=== PATIENT | female | born 1950 | race Caucasian/White ===

== ENCOUNTER 2018-06-09 00:38 | Outpatient (CLI) | payer OTHER, SELFPAY ==
--- NOTE | 2018-06-09 12:08 | DI.RAD_ITS ---
SYMPTOMS/DIAGNOSIS: ANTERIOR KNEE PAIN, ? FX, ONE AREA OF HORRIBLE PAIN S/P FALL 3 MONTHS AGO RIGHT KNEE: Three views. No priors. No bone or joint abnormality is identified. The soft tissues are unremarkable. IMPRESSION: Negative examination.
== END 2018-06-09 00:58 ==
PROVIDERS: PCP Family Medicine; Visit Provider Family Medicine
DX: M25.561 Pain in right knee (principal); Z91.81 History of falling
CPT/HCPCS: 73562

== ENCOUNTER 2018-06-16 01:24 | Outpatient (CLI) | payer OTHER, SELFPAY ==
--- NOTE | 2018-06-27 08:27 | PDOC.EEG ---
EEG: [facility] Department of Neurology LONG-TERM AMBULATORY EEG REPORT Date of Recordin06/16/18 at 11:04:05 to 06/19/18 at 11:54:40 Interpreting Physician: Dr. Mell Talavera PCP/Referring Provider: Dr. Gladys Thomas Reason for study: Ms. Isaacs is a 68 year-old woman with a history of atonic spells concerning for seizure. Current Medications: acetaminophen-codeine [Tylenol W/Codeine #3 Tablet] 1 tab PO Q6H PRN PRN #10 tab 11/11/14 azithromycin [Zithromax] 250 mg PO DAILY #4 tablet 11/11/14 ferrous sulfate 1 tab PO 11/11/14 lansoprazole 30 mg PO BID 11/11/14 sertraline [Zoloft] 50 mg PO QAM 11/11/14 simvastatin 20 mg 11/11/14 METHODS: An 18-channel digitized electroencephalogram was recorded in the ambulatory setting with video. The 10/20 international system of electrode placement was used and bipolar and referential electrode montages were recorded. In addition to EEG the patient was monitored for EKG and by video. Activation procedures of photic stimulation and hyperventilation were performed if applicable. The duration of the recording was ~72 hours. DESCRIPTION OF EEG: Waking background activity: During maximal wakefulness a 10-Hz posterior background rhythm was present which was well-modulated, symmetrical, reactive to eye opening, and of moderate voltage. Faster frequencies were present in the bilateral anterior head regions. There was a normal anterior-posterior voltage gradient. Drowsy and sleeping background activity: During drowsiness, there was attenuation of the posterior dominant background rhythm and vertex waves. Normal stage II and III sleep was present with symmetrical sleep spindles, K-complexes, and vertex waves with slowing of the background rhythm to delta/theta frequencies. REM sleep manifested by rapid lateral eye movements and faster background rhythms was recorded. Arousal was unremarkable. She had frequent nocturnal awakenings. Interictal abnormalities: none. There were rare, moderate-amplitude, left temporal sharps (T5) that were not clearly epileptiform. Ictal findings: No events were recorded. Activating Procedures: Photic stimulation was performed which produced a symmetrical posterior driving response at various flash frequencies. Hyperventilation was performed with moderate effort and produced mild physiological slowing of the background. EKG: EKG revealed normal sinus rhythm. INTERPRETATION: This long-term EEG is normal during the awake and sleep states as well as during the activation procedures. No events were captured. She had frequent nocturnal awakenings. There were rare, left temporal sharps that were not clearly epileptiform. PRIOR EEG: December 2017: normal awake, asleep, photic stimulation, and hyperventilation CLINICAL CORRELATION: No definite focal regions of cerebral dysfunction or epileptiform activity was present. There were rare left temporal sharps, but these were not clearly epileptiform. Epilepsy remains a clinical diagnosis and a normal EEG does not rule out epilepsy. Finally, the patient has frequent nocturnal awakenings which could suggest an underlying sleep disorder. Clinical correlation is advised. Mell Talavera MD
--- NOTE | 2018-06-27 08:33 | PDOC.EEG_ITS ---
EEG: [facility] Department of Neurology LONG-TERM AMBULATORY EEG REPORT Date of Recordin06/16/18 at 11:04:05 to 06/19/18 at 11:54:40 Interpreting Physician: Dr. Mell Talavera PCP/Referring Provider: Dr. Gladys Thomas Reason for study: Ms. Isaacs is a 68 year-old woman with a history of atonic spells concerning for seizure. Current Medications: acetaminophen-codeine [Tylenol W/Codeine #3 Tablet] 1 tab PO Q6H PRN PRN #10 tab 11/11/14 azithromycin [Zithromax] 250 mg PO DAILY #4 tablet 11/11/14 ferrous sulfate 1 tab PO 11/11/14 lansoprazole 30 mg PO BID 11/11/14 sertraline [Zoloft] 50 mg PO QAM 11/11/14 simvastatin 20 mg 11/11/14 METHODS: An 18-channel digitized electroencephalogram was recorded in the ambulatory setting with video. The 10/20 international system of electrode placement was used and bipolar and referential electrode montages were recorded. In addition to EEG the patient was monitored for EKG and by video. Activation procedures of photic stimulation and hyperventilation were performed if applicable. The duration of the recording was ~72 hours. DESCRIPTION OF EEG: Waking background activity: During maximal wakefulness a 10-Hz posterior background rhythm was present which was well-modulated, symmetrical, reactive to eye opening, and of moderate voltage. Faster frequencies were present in the bilateral anterior head regions. There was a normal anterior-posterior voltage gradient. Drowsy and sleeping background activity: During drowsiness, there was attenuation of the posterior dominant background rhythm and vertex waves. Normal stage II and III sleep was present with symmetrical sleep spindles, K- complexes, and vertex waves with slowing of the background rhythm to delta/ theta frequencies. REM sleep manifested by rapid lateral eye movements and faster background rhythms was recorded. Arousal was unremarkable. She had frequent nocturnal awakenings. Interictal abnormalities: none. There were rare, moderate-amplitude, left temporal sharps (T5) that were not clearly epileptiform. Ictal findings: No events were recorded. Activating Procedures: Photic stimulation was performed which produced a symmetrical posterior driving response at various flash frequencies. Hyperventilation was performed with moderate effort and produced mild physiological slowing of the background. EKG: EKG revealed normal sinus rhythm. INTERPRETATION: This long-term EEG is normal during the awake and sleep states as well as during the activation procedures. No events were captured. She had frequent nocturnal awakenings. There were rare, left temporal sharps that were not clearly epileptiform. PRIOR EEG: December 2017: normal awake, asleep, photic stimulation, and hyperventilation CLINICAL CORRELATION: No definite focal regions of cerebral dysfunction or epileptiform activity was present. There were rare left temporal sharps, but these were not clearly epileptiform. Epilepsy remains a clinical diagnosis and a normal EEG does not rule out epilepsy. Finally, the patient has frequent nocturnal awakenings which could suggest an underlying sleep disorder. Clinical correlation is advised. Mell Talavera MD
== END 2018-06-16 01:44 ==
PROVIDERS: PCP Family Medicine; Visit Provider Psychiatry & Neurology Neurology
DX: G40.409 Other generalized epilepsy and epileptic syndromes, not intractable, without status epilepticus (principal)
CPT/HCPCS: 95953

== ENCOUNTER 2018-07-03 13:36 | Outpatient (REF) | payer OTHER, SELFPAY ==
--- NOTE | 2018-07-03 11:38 | SKI_PTH ---
PATIENT: Janet Isaacs LOC: [facility] U#:[id number] AGE/SX: 68/F ROOM: RE07/03/[address]: Ivan Pelletier DO : 1950 BED: DIS: 07/03/2018 SPEC #: [id number] RECD: 07/03/18 18:16 STATUS: ROSARIO RELuis #: [id number] JOSÉ MIGUEL: 07/03/18 11:[address]: Ivan Pelletier DEPT: Surgical Specimen RECD BY: Randi Rhodes ENTERED: 07/03/18 18:17 SP TYPE: CANDELARIO NOE DR: Mikel Shook Tissues: 1 - SKIN BIOPSY(SHAVE/PUNCH) Procedures: SKIN LEVEL 4 Comments: [id number]
== END 2018-07-03 13:56 ==
LOC: LBN 13:36
PROVIDERS: PCP Family Medicine; Visit Provider Otolaryngology Otolaryngology/Facial Plastic Surgery
DX: L82.1 Other seborrheic keratosis (principal)
CPT/HCPCS: 88305

== ENCOUNTER 2019-08-31 01:09 | Outpatient (CLI) | payer OTHER, SELFPAY ==
[2019-08-31 08:00] LABS: Absolute Basophil Count 0.02 k/cumm (0.0-0.2); Absolute Lymphocyte Count 1.88 k/cumm (1.2-3.4); Absolute Monocyte Count 0.33 k/cumm (0.11-0.7); Absolute Neutrophil Count 1.71 k/cumm (1.2-6.7); Basophils % 0.5; Eosinophils % 2.5; HCT 37.2 % (36.0-46.0); HGB 11.9 g/dL (12.0-15.5); Lymphocytes % 46.5; Mean Corpuscular Hemoglobin 25.6 pg (27.0-33.0); Mean Platelet Volume 9.9 fL (8.0-11.0); Monocytes % 8.2; Neutrophils % 42.3; Platelet Count 296 x1000/uL (130-400); RBC 4.65 m/cumm (4.00-5.20); RBC Distribution Width 15.9 % (11.7-14.6); White Blood Cell Count 4.04 k/cumm (4.4-10.8)
[2019-08-31 08:23] LABS: TROPONIN-I < 0.5 ug/mL (4.0-12.0)
[2019-08-31 09:10] LABS: ALT 37 U/L (14-59); AST 20 U/L (15-37); Albumin 3.4 g/dL (3.4-5.0); Alkaline Phosphatase 66 U/L (46-116); Anion Gap 7.4 mmol/L (3-11); BUN 24 mg/dL (7-18); Bilirubin, Total 0.3 mg/dL (0.2-1.0); CO2 31.6 mmol/L (21.0-32.0); CREATININE 0.69 mg/dL (0.55-1.02); Calcium 8.9 mg/dL (8.5-10.1); Calculated LDL 111 mg/dL (<100); Chloride 104 mmol/L (98-107); Cholesterol 221 mg/dL (<200); Ferritin 9 ng/mL (8-252); Glucose 106 mg/dL (74-106); HDL Cholesterol 101 mg/dL (40-60); Sodium 143 mmol/L (136-145); Total Protein 6.3 g/dL (6.4-8.2); Triglyceride 45 mg/dL (<150); Vitamin B12 1072 pg/mL (193-986)
== END 2019-08-31 01:29 ==
PROVIDERS: PCP Family Medicine; Visit Provider Family Medicine
DX: R56.9 Unspecified convulsions (principal); Z51.81 Encounter for therapeutic drug level monitoring; D50.9 Iron deficiency anemia, unspecified; G40.219 Localization-related (focal) (partial) symptomatic epilepsy and epileptic syndromes with complex partial seizures, intractable, without status epilepticus
CPT/HCPCS: 36415; 80053; 80061; 80156; 82607; 82728; 83735; 85025

== ENCOUNTER 2019-12-25 04:38 | Outpatient (CLI) | payer OTHER, SELFPAY ==
[2019-12-25 09:36] LABS: Hemoglobin A1C 6.7 % (3.8-5.6)
[2019-12-25 10:33] LABS: ALT 39 U/L (14-59); AST 25 U/L (15-37); Albumin 3.5 g/dL (3.4-5.0); Alkaline Phosphatase 66 U/L (46-116); Anion Gap 5.2 mmol/L (3-11); BUN 24 mg/dL (7-18); Bilirubin, Total 0.4 mg/dL (0.2-1.0); CO2 29.8 mmol/L (21.0-32.0); CREATININE 0.83 mg/dL (0.55-1.02); Calcium 9.2 mg/dL (8.5-10.1); Calculated LDL 118 mg/dL (<100); Chloride 102 mmol/L (98-107); Cholesterol 236 mg/dL (<200); Glucose 133 mg/dL (74-106); HDL Cholesterol 102 mg/dL (40-60); Potassium 4.2 mmol/L (3.5-5.1); Sodium 137 mmol/L (136-145); Total Protein 6.7 g/dL (6.4-8.2); Triglyceride 80 mg/dL (<150)
== END 2019-12-25 04:58 ==
PROVIDERS: Visit Provider Family Medicine
DX: E78.5 Hyperlipidemia, unspecified (principal); E16.2 Hypoglycemia, unspecified
CPT/HCPCS: 36415; 80053; 80061; 83036

== ENCOUNTER 2020-03-07 04:14 | Outpatient (CLI) | payer OTHER, SELFPAY ==
[2020-03-07 08:06] LABS: Absolute Basophil Count 0.02 10^3/uL (0.0-0.2); Absolute Lymphocyte Count 2.01 10^3/uL (1.2-3.4); Absolute Monocyte Count 0.36 10^3/uL (0.1-0.8); Basophils % 0.4; Eosinophils % 2.2; HCT 43.3 % (36.0-46.0); HGB 13.4 g/dL (11.2-15.7); Lymphocytes % 44.8; MCH 25.3 pg (27.0-33.0); MCHC 30.9 % (32.0-36.0); MCV 81.7 fL (80-95); MPV 10.1 fL (8.0-11.0); Neutrophils % 44.6; Nucleated RBC 0 %; Platelet Count 292 10^3/uL (130-400); RDW 16.8 % (11.7-14.6); RDW-SD 49.5 fL; WBC 4.49 10^3/uL (4.4-10.8)
[2020-03-07 08:14] LABS: Prothrombin Time 9.9 sec (9.3-11.0)
[2020-03-07 08:37] LABS: ALT 27 U/L (14-59); AST 21 U/L (15-37); Albumin 3.9 g/dL (3.4-5.0); Alkaline Phosphatase 55 U/L (46-116); Anion Gap 8.7 mmol/L (3-11); BUN 12 mg/dL (7-18); Bilirubin, Total 0.4 mg/dL (0.2-1.0); CO2 28.3 mmol/L (21.0-32.0); CREATININE 0.83 mg/dL (0.55-1.02); Calcium 9.2 mg/dL (8.5-10.1); Chloride 103 mmol/L (98-107); Glucose 122 mg/dL (74-106); Potassium 4.2 mmol/L (3.5-5.1); Sodium 140 mmol/L (136-145); Total Protein 6.9 g/dL (6.4-8.2)
== END 2020-03-07 04:34 ==
PROVIDERS: Visit Provider Family Medicine
DX: R23.3 Spontaneous ecchymoses (principal)
CPT/HCPCS: 36415; 80053; 85025; 85610

== ENCOUNTER 2020-03-26 04:32 | Outpatient (CLI) | payer OTHER, SELFPAY ==
--- NOTE | 2020-03-26 | DI.DEXA_ITS ---
EXAM: XR DEXA BONE DENSITY W/WO BONNIE CLINICAL HISTORY: OSTEOPOROSIS SCREENING, Z00.00 TECHNIQUE: COMPARISON: 11/16/2016 FINDINGS: Lateral Spine Image: Unremarkable. No compression deformities identified. Left hip: Total T-Score: -1.9. This compares with -1.7 on the prior examination. Total Z-Score: -0.4 T- and Z-scores: Osteopenia with an increased fracture risk. Lumbar Spine: Total T-Score: -0.5. This compares with -0.2 on the prior examination. Total Z-Score: 1.6 T- and Z-scores: Within normal limits. IMPRESSION: No evidence of osteoporosis.
== END 2020-03-26 04:52 ==
PROVIDERS: Visit Provider Family Medicine
DX: Z13.820 Encounter for screening for osteoporosis (principal)
CPT/HCPCS: 77080

== ENCOUNTER 2020-05-21 02:45 | Outpatient (CLI) | payer OTHER, SELFPAY ==
--- NOTE | 2020-05-21 | DI.MRI_ITS ---
EXAM: MR LUMBAR SPINE WO CLINICAL HISTORY: CHRONIC MIDLINE LOW BACK PAIN,M54.40,SCIATICA,G89.29. TECHNIQUE: Multiplanar multisequence MRI was performed. COMPARISON: No exams were available for comparison FINDINGS: MR of the lumbar spine was performed according to the usual protocol. There are prominent facet hypertrophic degenerative changes throughout the mid to lower lumbar spine. There is a probable partially healed bilateral L5 spondylolysis with mild anterior spondylolisthesi s of L5 on S1 estimated at less than 10 percent of the vertebral width.. There are Lashon discal vertebral signal changes noted at multiple levels consistent with disc degenera tion particularly at T12-T11 and at L2-3. The conus medullaris appears intact. No significant findings at T12-L1 or L1-2 levels. No significant findings at L2-3 except for mild fa cet hypertrophy left. At L3-4 there is a mild disc bulge. There is mild left-sided neural foraminal narrowing. No central canal spinal stenosis or disc herniation. At L4-5, there is a moderate disc bulge with slight superimposed left paracentral broad-based disc he rniation. There is mild bilateral neural foraminal narrowing, right greater than left. No central c anal spinal stenosis. At L5-S1 there is mild right and left-sided neural foraminal stenosis secondary to the mild anterior spondylolisthesis. There is a moderate disc bulge. No disc herniation or central canal spinal steno sis seen. IMPRESSION: Multilevel degenerative changes. Mild anterior spondylolisthesis of L5 on S1. Multilevel neural for aminal narrowing. Please see above discussion for findings at individual levels. DATA REPOSITORY:
== END 2020-05-21 03:05 ==
PROVIDERS: Visit Provider Family Medicine
DX: M43.17 Spondylolisthesis, lumbosacral region (principal); M48.061 Spinal stenosis, lumbar region without neurogenic claudication; M47.816 Spondylosis without myelopathy or radiculopathy, lumbar region
CPT/HCPCS: 72148

== ENCOUNTER 2020-10-24 02:17 | Outpatient (CLI) | payer OTHER, SELFPAY ==
[2020-10-24 10:18] LABS: Hemoglobin A1C 6.9 % (<5.7)
[2020-10-24 10:38] LABS: Anion Gap 6.4 mmol/L (3-11); BUN 20 mg/dL (7-18); CO2 33.6 mmol/L (21.0-32.0); CREATININE 0.7 mg/dL (0.55-1.02); Calcium 9.2 mg/dL (8.5-10.1); Chloride 104 mmol/L (98-107); Ferritin 9 ng/mL (8-252); Glucose 109 mg/dL (74-106); Potassium 5.2 mmol/L (3.5-5.1); Sodium 144 mmol/L (136-145); TSH 3.42 uIU/mL (0.36-3.74)
== END 2020-10-24 02:18 | disposition home or self-care (01) ==
LOC: LBO 02:19
PROVIDERS: PCP Family Medicine; Visit Provider Family Medicine
DX: L65.9 Nonscarring hair loss, unspecified (principal); D50.9 Iron deficiency anemia, unspecified; E11.9 Type 2 diabetes mellitus without complications
CPT/HCPCS: 36415; 80048; 82728; 83036; 84443

== ENCOUNTER 2020-11-27 02:34 | Outpatient (CLI) | payer OTHER, SELFPAY ==
--- NOTE | 2020-11-27 | DI.RAD_ITS ---
Exam(s) XR FOOT RT COMPLETE EXAM: XR FOOT RT COMPLETE CLINICAL HISTORY: GREAT TOE PAIN,M79.671 TECHNIQUE: COMPARISON: DX XR FOOT MIN 3 VIEWS LEFT (GENERIC) from 11/03/2020 FINDINGS: Three views were obtained. There is a suture projected over the distal aspect of the 2nd metatarsal head which may be associated with prior osteotomy. There is an apparent joint replacement and plays at the 1st MTP joint with associated sclerotic in cysts cystic changes of the adjacent bones. There are severe degenerative changes at the IP joint of the great toe. IMPRESSION: RADIATION DOSE DELIVERED: Total DLP
--- NOTE | 2020-11-27 | DI.CT_ITS ---
Exam(s) CT LOWER EXTREMITY LT WO EXAM: CT LOWER EXTREMITY LT WO CLINICAL HISTORY: ? RETAINED IMPLANT 1ST MTP JOINT,GREAT TOE PAIN,M79.671 TECHNIQUE: COMPARISON: No exams were available for comparison FINDINGS: CT examination the left foot was performed according to the usual protocol. There is a joint replace ment in position at the 1st MTP joint. The periarticular cortex of the adjacent bones is somewhat ir regular and contains multiple sclerotic and cystic spaces. No gross acute fracture seen involving th e head of the 1st metatarsal. There is an apparent cortical discontinuity of the plantar aspect of t he base of the proximal phalanx of the great toe which could represent acute or chronic unhealed frac ture. No other significant bony findings. No evidence of displacement of the prosthesis. Mild soft tissue swelling noted around the 1st MTP joint. IMPRESSION: Possible nondisplaced fracture without displacement of the 1st MTP P joint prosthesis at the plantar aspect of the base of the proximal phalanx, possible 2-3 millimeter fracture fragment at this site. RADIATION DOSE DELIVERED: 288.11mGy.cm Total DLP RADIATION OPTIMIZATION: All CT scans at this facility use at least one of these dose optimization te chniques: automated exposure control; mA and/or kV adjustment per patient size (includes targeted exa ms where dose is matched to clinical indication); or iterative reconstruction.
== END 2020-11-27 02:54 ==
PROVIDERS: PCP Family Medicine; Visit Provider Orthopaedic Surgery Foot and Ankle Surgery
DX: M79.671 Pain in right foot (principal); R93.7 Abnormal findings on diagnostic imaging of other parts of musculoskeletal system; Z96.698 Presence of other orthopedic joint implants
CPT/HCPCS: 73630; 73700

== ENCOUNTER 2021-01-22 04:14 | Outpatient (CLI) | payer OTHER, SELFPAY ==
[2021-01-22 12:24] LABS: Hemoglobin A1C 6.6 % (<5.7)
[2021-01-22 12:40] LABS: ALT 27 U/L (14-59); AST 18 U/L (15-37); Albumin 3.6 g/dL (3.4-5.0); Alkaline Phosphatase 68 U/L (46-116); BUN 23 mg/dL (7-18); Bilirubin, Total 0.4 mg/dL (0.2-1.0); CREATININE 0.7 mg/dL (0.55-1.02); Calcium 9.1 mg/dL (8.5-10.1); Calculated LDL 115 mg/dL (<100); Chloride 104 mmol/L (98-107); Cholesterol 221 mg/dL (<200); Ferritin 9 ng/mL (8-252); Glucose 109 mg/dL (74-106); HDL Cholesterol 96 mg/dL (40-60); Potassium 4.1 mmol/L (3.5-5.1); Sodium 142 mmol/L (136-145); TSH 1.55 uIU/mL (0.36-3.74); Total Protein 6.5 g/dL (6.4-8.2); Triglyceride 53 mg/dL (<150); Vitamin B12 606 pg/mL (193-986)
== END 2021-01-22 04:15 | disposition home or self-care (01) ==
LOC: LBO 04:14
PROVIDERS: PCP Family Medicine; Visit Provider Family Medicine
DX: E78.5 Hyperlipidemia, unspecified (principal); E53.8 Deficiency of other specified B group vitamins; D50.9 Iron deficiency anemia, unspecified; R53.83 Other fatigue; T14.8XXA Other injury of unspecified body region, initial encounter; E11.9 Type 2 diabetes mellitus without complications
CPT/HCPCS: 36415; 80053; 80061; 82607; 82728; 83036; 84443

== ENCOUNTER 2021-02-23 15:55 | Outpatient (CLI) | payer OTHER, SELFPAY ==
[2021-02-23 13:58] LABS: Anion Gap 4.8 mmol/L (3-11); BUN 25 mg/dL (7-18); CO2 30.2 mmol/L (21.0-32.0); CREATININE 0.9 mg/dL (0.55-1.02); Chloride 107 mmol/L (98-107); Glucose 103 mg/dL (74-106); Potassium 5.3 mmol/L (3.5-5.1); Sodium 142 mmol/L (136-145)
[2021-02-24 19:31] LABS: Arsenic <1 ng/mL (<13); Cadmium <0.2 ng/mL (<5.0); Mercury <1 ng/mL (<10); Patient Race white; Submitting Laboratory Phone 802-748-7458; Venous/Capillary Venous
== END 2021-02-23 15:56 | disposition home or self-care (01) ==
LOC: LBO 15:56
PROVIDERS: PCP Family Medicine; Visit Provider Family Medicine
DX: L65.9 Nonscarring hair loss, unspecified (principal)
CPT/HCPCS: 36415; 80048; 82175; 82300; 83655; 83825

== ENCOUNTER 2021-03-02 04:25 | Outpatient (CLI) | payer OTHER, SELFPAY ==
--- NOTE | 2021-03-02 13:00 | NS.NUTBLAN_ITS ---
Janet was referred to Medical Nutrition Therapy for prediabetes, hyperlipidemia and weight management. Janet reports she had gastric bypass in 1999, with original weigh tof 300 lbs. Current weight 128 lbs, has regained total of 12 lbs. 5 3. Reports frequent emesis if eats too much. Recent labs indicate elevated LDL of 115, mg/dl, HDL of 92mg/dl. A1C: 6.5% Meds include pravastatin, D3, Calcium Citrate and multiple gummy vitamins that she can tolerate. Food recall indicates small regular meal plan with mostly well balanced meals including complex carbs, lean protein and fats. Does not exercise due to leg pain. Session today focused on how to balance carbohydrate intake with lean protein and healthy fat to reduce insulin resistance. Encouraged walking as able. Current diet not excessive in carb intake, suspect elevated A1C due to genetic predisposition as strong family hx present. Provided literature and contact information. Plan. No follow planned. Recommend checking A1C q 6 months. May need oral DM med if A1C remains elevated.
== END 2021-03-02 04:26 | disposition home or self-care (01) ==
LOC: DS 04:25
PROVIDERS: PCP Family Medicine; Visit Provider Dietitian, Registered
DX: E11.9 Type 2 diabetes mellitus without complications (principal); E78.5 Hyperlipidemia, unspecified; Z98.84 Bariatric surgery status; Z71.3 Dietary counseling and surveillance
CPT/HCPCS: 97802

== ENCOUNTER 2021-03-04 03:48 | Outpatient (RCR) | payer OTHER, SELFPAY ==
--- NOTE | 2021-03-04 11:00 | HOLTER_ITS ---
APPROVED REPORT Conclusion There is a 48-hour monitor ordered for indication of palpitations. The patient was in normal sinus rhythm for the majority the recording with an average heart rate of 7 2 bpm. There were no episodes of supraventricular tachycardia nor any episodes of ventricular tachycardia. There were rare PACs and rare PVCs. There were no episodes of atrial fibrillation, no pauses greater than 3 seconds and no evidence of hi gh degree heart block. There was 1 patient recorded event at 3 AM associated with chest pain. There were no arrhythmias det ected.
== END 2021-03-24 23:59 | disposition home or self-care (01) ==
LOC: RT 03:48
PROVIDERS: PCP Family Medicine; Visit Provider Family Medicine
DX: R00.2 Palpitations (principal)
CPT/HCPCS: 93227; 93225; 93226

== ENCOUNTER 2021-03-23 09:03 | Outpatient (CLI) | payer OTHER, SELFPAY ==
--- NOTE | 2021-03-23 09:00 | RT.EKG_ITS ---
APPROVED REPORT Exam: Resting ECG Reason for Exam: palpitations Patient Location: O HR:93 bpm ECG Measurements Heart Rate 93 AXIS KS 124 P 74 QRSd 133 QRS -20 QT 429 T 75 QTc 534 Conclusion Sinus rhythm...normal P axis, V-rate 50- 99 Atrial premature complex...SV complex w/ short R-R interval Nonspecific intraventricular conduction delay...QRSd >115mS, not LBBB/RBBB
== END 2021-03-23 09:04 | disposition home or self-care (01) ==
LOC: DI.CARD 09:06
PROVIDERS: PCP Family Medicine; Visit Provider Internal Medicine Cardiovascular Disease
DX: R00.2 Palpitations (principal)
CPT/HCPCS: 93010

== ENCOUNTER → 2021-03-23 09:18 | Outpatient (BNVA) | payer OTHER, SELFPAY | PROVIDERS: PCP Family Medicine; Referring Provider Family Medicine; Visit Provider Internal Medicine Cardiovascular Disease | DX: R00.2 Palpitations (principal) | CPT/HCPCS: 93005; 99204; 99215 ==

== ENCOUNTER 2021-06-10 03:26 | Outpatient (CLI) | payer MEDICARE, OTHER, SELFPAY ==
[2021-06-11 12:28] LABS: Myeloperoxidase Ab IgG <0.2 U; Proteinase 3 Ab (PR3) <0.2 U
== END 2021-06-10 03:27 | disposition home or self-care (01) ==
LOC: LBO 03:26
PROVIDERS: PCP Family Medicine; Visit Provider Otolaryngology
DX: J34.89 Other specified disorders of nose and nasal sinuses (principal)
CPT/HCPCS: 36415; 83516

== ENCOUNTER 2021-07-30 03:21 | Outpatient (CLI) | payer MEDICARE, OTHER, SELFPAY ==
--- NOTE | 2021-07-30 | DI.RAD_ITS ---
Exam(s) XR ANKLE LT COMPLETE EXAM: XR ANKLE LT COMPLETE CLINICAL HISTORY: LT ANKLE PAIN TECHNIQUE: 2D digital imaging was performed of the left ankle. Three images were obtained. AP, lat eral and oblique views were obtained. COMPARISON: No exams were available for comparison FINDINGS: BONES: No acute fracture is present. No bony destructive lesion is seen. JOINTS:The ankle mortise is normally aligned. SOFT TISSUE: Normal. IMPRESSION: Unremarkable radiographs of the left ankle. DATA REPOSITORY: RADIATION DOSE DELIVERED:
== END 2021-07-30 03:41 ==
PROVIDERS: PCP Family Medicine; Visit Provider Family Medicine
DX: M25.572 Pain in left ankle and joints of left foot (principal)
CPT/HCPCS: 73610

== ENCOUNTER 2021-10-16 03:47 | Outpatient (CLI) | payer MEDICARE, OTHER, SELFPAY ==
[2021-10-16 11:52] LABS: Hemoglobin A1C 6.6 % (<5.7)
== END 2021-10-16 03:48 | disposition home or self-care (01) ==
LOC: LBO 03:47
PROVIDERS: PCP Family Medicine; Visit Provider Family Medicine
DX: E11.65 Type 2 diabetes mellitus with hyperglycemia (principal)
CPT/HCPCS: 36415; 83036

== ENCOUNTER 2021-10-23 14:53 | Outpatient (REF) | payer MEDICARE, OTHER, SELFPAY ==
[2021-10-26 15:56] LABS: Helicobacter pylori Ag, Feces Negative (Negative)
== END 2021-10-23 14:54 | disposition home or self-care (01) ==
LOC: LBN 14:53
PROVIDERS: PCP Family Medicine; Visit Provider Family Medicine
DX: R10.13 Epigastric pain (principal)
CPT/HCPCS: 87338

== ENCOUNTER 2021-11-06 00:36 | Outpatient (CLI) | payer MEDICARE, OTHER, SELFPAY ==
--- NOTE | 2021-11-06 | DI.MRI_ITS ---
Exam(s) MR UPPER JOINT LT WO EXAM: MR UPPER JOINT LT WO CLINICAL HISTORY: LT SHOULDER PAIN, M25.512. TECHNIQUE: Multiplanar multisequence MRI was performed. COMPARISON: MR MRI - L UPPER JOINT WO CONT from 06/22/2016 FINDINGS: BONES: There is no fracture or contusion pattern. JOINTS: Moderate degenerative changes are seen at the acromioclavicular joint. There are marked dege nerative changes seen at the glenohumeral joint with loss of the articular cartilage, subchondral indra ma and periarticular spurring present. Degenerative changes are also seen in the greater tuberosity. TENDONS: Supraspinatus: There is tendinosis of the supraspinatus tendon. There is a partial intrasubstance te ar of the supraspinatus tendon at its insertion site. Infraspinatus: There is tendinosis of the infraspinatus tendon. There is a small bursal surface part ial tear at the insertion site. Subscapularis: There is tendinosis of the subscapularis tendon. There is hyperintense signal seen at the superior aspect of the tendon consistent with a partial intrasubstance tear. Teres Minor: Unremarkable. Biceps and [place]: Unremarkable. MUSCLES: Unremarkable. No significant fatty atrophy of the rotator cuff muscles. GLENOID LABRUM: Unremarkable on this noncontrast examination. SOFT TISSUES: Unremarkable. LIGAMENTS: The ligaments and capsule appear unremarkable. OTHER: There is a small amount of fluid seen in the subacromial subdeltoid bursa consistent with burs itis. IMPRESSION: 1. Intrasubstance tear involving the supraspinatus tendon. 2. Bursal surface tear of the infraspinatus tendon. 3. Intrasubstance tear of the subscapularis tendon. 4. Tendinosis of the supraspinatus, infraspinatus and subscapularis tendons. 5. Marked degenerative changes at the glenohumeral joint. Moderate degenerative changes at the AC mike int. 6. Subacromial subdeltoid bursitis. DATA REPOSITORY:
== END 2021-11-06 00:56 ==
LOC: DI 00:36
PROVIDERS: PCP Family Medicine; Visit Provider Orthopaedic Surgery
DX: M25.512 Pain in left shoulder (principal); M19.012 Primary osteoarthritis, left shoulder; M75.82 Other shoulder lesions, left shoulder; M75.52 Bursitis of left shoulder; S46.912A Strain of unspecified muscle, fascia and tendon at shoulder and upper arm level, left arm, initial encounter
CPT/HCPCS: 73221

== ENCOUNTER 2021-11-12 02:38 | Outpatient (CLI) | payer MEDICARE, OTHER, SELFPAY ==
[2021-11-12 08:40] LABS: Hemoglobin A1C 6.6 % (<5.7)
[2021-11-12 09:03] LABS: Calculated LDL 116 mg/dL (<100); Cholesterol 234 mg/dL (<200); HDL Cholesterol 107 mg/dL (40-60); Triglyceride 59 mg/dL (<150)
[2021-11-12 09:22] LABS: Vitamin D 25 Total 51.8 ng/mL (30-100)
== END 2021-11-12 02:39 | disposition home or self-care (01) ==
LOC: LBO 02:38
PROVIDERS: PCP Family Medicine; Visit Provider Family Medicine
DX: E11.9 Type 2 diabetes mellitus without complications (principal); E78.5 Hyperlipidemia, unspecified; E55.9 Vitamin D deficiency, unspecified
CPT/HCPCS: 36415; 80061; 82306; 83036

== ENCOUNTER 2022-01-06 02:24 | Outpatient (CLI) | payer MEDICARE, OTHER, SELFPAY ==
[2022-01-06 15:07] LABS: Abs Immature Grans 0.01 10^3/uL (0.0-0.06); Absolute Basophil Count 0.02 10^3/uL (0.0-0.2); Absolute Eosinophil Count 0.08 10^3/uL (0.0-0.7); Absolute Lymphocyte Count 1.83 10^3/uL (1.2-3.4); Absolute Monocyte Count 0.37 10^3/uL (0.1-0.8); Absolute Neutrophil Count 2.98 10^3/uL (1.2-6.7); Basophils % 0.4; Eosinophils % 1.5; HGB 12.5 g/dL (11.2-15.7); Immature Grans % 0.2; Lymphocytes % 34.6; MCH 25.2 pg (27.0-33.0); MCHC 31.3 % (32.0-36.0); MCV 81 fL (80-95); MPV 9.7 fL (8.0-11.0); Neutrophils % 56.3; Platelet Count 283 10^3/uL (130-400); RBC 4.96 10^6/uL (3.93-5.22); RDW-SD 47.3 fL; WBC 5.29 10^3/uL (4.4-10.8)
[2022-01-06 15:46] LABS: ALT 27 U/L (14-59); AST 22 U/L (15-37); Albumin 3.7 g/dL (3.4-5.0); Alkaline Phosphatase 71 U/L (46-116); Anion Gap 9.3 mmol/L (3-11); BUN 29 mg/dL (7-18); Bilirubin, Total 0.2 mg/dL (0.2-1.0); CO2 26.7 mmol/L (21.0-32.0); Calcium 8.8 mg/dL (8.5-10.1); Calculated LDL 107 mg/dL (<100); Chloride 103 mmol/L (98-107); Cholesterol 239 mg/dL (<200); Estimated GFR 54.66 (mL/min/1.73m2); Glucose 115 mg/dL (74-106); HDL Cholesterol 100 mg/dL (40-60); Potassium 3.8 mmol/L (3.5-5.1); Sodium 139 mmol/L (136-145); Total Protein 7.1 g/dL (6.4-8.2); Triglyceride 164 mg/dL (<150)
== END 2022-01-06 02:25 | disposition home or self-care (01) ==
LOC: LBO 02:24
PROVIDERS: PCP Family Medicine; Visit Provider Family Medicine
DX: E78.5 Hyperlipidemia, unspecified (principal); D50.9 Iron deficiency anemia, unspecified; E11.9 Type 2 diabetes mellitus without complications
CPT/HCPCS: 36415; 80053; 80061; 85025

== ENCOUNTER → 2022-02-02 01:54 | Outpatient (CLI) | payer MEDICARE, OTHER, SELFPAY ==
--- NOTE | 2022-02-02 | DI.US_ITS ---
Exam(s) US ABDOMEN LIMITED EXAM: US ABDOMEN LIMITED CLINICAL HISTORY: GALLSTONES K80 TECHNIQUE: Ultrasound abdomen performed using standard protocol. COMPARISON: No exams were available for comparison FINDINGS: PANCREAS: Normal where visualized. LIVER: Normal. Hepatopedal flow in the Portal Vein. The liver measures in 14.5 cm length. GALLBLADDER:Multiple mobile gallstones are present. No evidence of wall thickening. No pericholecyst ic fluid identified. BILIARY SYSTEM: Common bile duct measures < 7 mm. No intrahepatic biliary ductal dilation. ROBERTS'S SIGN: Negative. RIGHT KIDNEY: Kidney is normal in size. No evidence of renal calculi. No evidence of hydronephrosis. No renal mass or cyst identified. ASCITES: None seen. IMPRESSION: Cholelithiasis. No sonographic evidence of acute cholecystitis. DATA REPOSITORY:
== END ==
PROVIDERS: PCP Family Medicine; Visit Provider Family Medicine
DX: K80.20 Calculus of gallbladder without cholecystitis without obstruction (principal)
CPT/HCPCS: 76705

== ENCOUNTER 2022-05-03 06:32 | Day surgery (SDC) | payer MEDICARE, OTHER, SELFPAY ==
--- NOTE | 2022-05-03 06:27 | ANES.PREOP_ITS ---
General Info Date of Service Date Performed: 05/03/22 Height: 5 ft 4 in Weight: 62.596 kg Body Mass Index (BMI): 23.6 Surgical Procedure: Operation Date: 05/03/22 07:40 Proposed Procedure Side Surgeon p Cataract Extraction with IOL Implant Left Wally Villalpando MD Meds Allergies and Home Medications Allergies Allergy/AdvReac Type Severity Reaction Status Date / Time Penicillins Allergy Severe Anaphylaxsi Verified 05/03/22 06:44 s venom-honey bee Allergy Severe Anaphylaxis Verified 05/03/22 06:44 [bee venom (honey bee)] latex Allergy Intermediate Skin Rash Verified 05/03/22 06:44 cigarette smoke Allergy Unknown running Verified 05/03/22 06:44 eyes and coughing zolpidem [From Ambien] AdvReac Severe makes her Verified 05/03/22 06:44 head crazy Home Medication Medication Instructions Recorded simvastatin 20 mg tablet 20 mg PO DAILY 11/11/14 ascorbic acid (vitamin C) 1,000 mg 1 g PO DAILY 03/23/21 tablet cholecalciferol (vitamin D3) 50 2,000 unit PO DAILY 03/23/21 mcg (2,000 unit) capsule cyclobenzaprine 5 mg tablet 5 mg PO TID 05/05/21 cyclosporine 0.05 % eye drops in a 1 drp ophthalmic (eye) Q12H 05/05/21 dropperette (Restasis) lidocaine 5 % topical ointment 1 applic topical DAILY PRN 05/05/21 resveratrol 50 mg capsule 50 mg PO DAILY 05/11/21 black elderberry PO 05/12/21 lansoprazole 30 mg capsule,delayed 30 mg PO BID PRN 05/12/21 release (Prevacid) omeprazole 40 mg capsule,delayed 40 mg PO BID 05/03/22 release Current Visit Medications: Current Medications Generic Name Dose Route Start Last Admin Trade Name Freq PRN Reason Stop Dose Admin Acetaminophen 1,000 mg 05/03/22 06:00 Acetaminophen 500 Mg Tab PO Q4H PRN PRN Miscellaneous Medication 0 ml 05/03/22 06:00 Prednisolone 1%, Moxifloxacin 0.5%, Nepafenac 0.1% 5ml Btl OS DIRECTED KRISTIAN Miscellaneous Medication 0 ml 05/03/22 06:00 Tropicam./Phenyleph. (1/2.5%) 5 Ml Btl OS DIRECTED KRISTIAN Tetracaine HCl 0 ml 05/03/22 06:00 Tetracaine 0.5% 4 Ml Btl OS DIRECTED [facility] PFSH Active Problems Active Problems: Problem Status Onset Code Neoplasm of unspecified behavior of bone, soft tissue, and skin D49.2 Intractable episodic tension-type headache G44.211 Anatomical narrow angle borderline glaucoma Complication of breast implant T85.9XXA Atrophic vaginitis N95.2 Binge eating R63.2 Depression with anxiety F41.8 Herniated intervertebral disc of lumbar spine M51.26 Herpes B00.9 History of reconstruction of both breasts Z98.890 Hyperlipidemia E78.5 Insomnia G47.00 Iron deficiency anemia D50.9 Localized adiposity of thigh E65 Memory loss R41.3 Nocturia R35.1 Patellofemoral disorder of left knee M22.2X2 Patellofemoral disorder of right knee M22.2X1 RLS (restless legs syndrome) G25.81 Rotator cuff tear arthropathy M75.100, M12.819 Sciatica M54.30 Vaginal bleeding N93.9 Vitamin D deficiency E55.9 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 Type 2 diabetes mellitus without complication, without long-term current use of insulin E11.9 Bilateral foot pain M79.671, M79.672 PTSD (post-traumatic stress disorder) F43.10 Gastroesophageal reflux disease with esophagitis without hemorrhage K21.00 Palpitation R00.2 Nasal pain J34.89 Skin lesion of left ear H61.92 Medical History Medical History History of pituitary adenoma Transnasal pituitary adenoma excision (patient unsure of whether the adenoma was productive) Surgical History Surgical History H/O bilateral mastectomy H/O nasal septoplasty H/O rhinoplasty History of tonsillectomy and adenoidectomy Hx of gastric bypass Tobacco Smoking/Tobacco Use Status: Never Alcohol Alcohol Intake: current Alcohol intake frequency: holidays/special occasions only Substance Use Substance use: Never Substance use type: does not use Vital Signs and Lab Results Vital Signs Most Recent Vital Signs in EMR: Temp Pulse Resp BP Pulse Ox 36.6 C 73 18 108/71 99 05/03/22 06:50 10/10/22 06:50 05/03/22 06:50 05/03/22 06:50 05/03/22 06:50 Lab Results Blood Type / Crossmatch: No Data to Display Complete Blood Count: No Data to Display Complete Metabolic Panel: No Data to Display Liver Function Panel: No Data to Display Coagulation Panel: No Data to Display Cardiac Panel: No Data to Display Arterial Blood Gas: No Data to Display Venous Blood Gas: No Data to Display Pancreas Panel: No Data to Display Thyroid Panel: No Data to Display Infectious Disease: No Data to Display Blood Cultures: No Data to Display Toxicology Panel: No Data to Display Imaging and Studies Imaging and Studies Study information below may be from another EMR and interpreted by another provider. Please see original notes in EMR for more complete details. EKG Summary: 02/2021: sinus. PAC, nonspecific intraventricular conduction delay. Anesthesia Assessment and Plan Anesthesia History Personal History: PONV Family History: No Family History of Anesthesia Complications Exercise Tolerance Exercise Tolerance: Metabolic Equivalents>4 Cardiac & Pulmonary Exam Cardiac Exam: Normal S1/S2 Heart Sounds Pulmonary Exam: Clear Bilateral Breath Sounds Implantable Cardiac Device Does patient have a Pacemaker or an ICD?: No Airway Exam Known Difficult Airway: No Mallampati Class: 1 Mouth Opening: Normal (> 3cm) Thyromental Distance: Greater than 3 cm Neck Range of Motion: Full ROM Neck Circumference: Normal Teeth Condition: Normal Dentition ASA Classification ASA Score: ASA 2 Emergency Case?: No NPO Status NPO Status: NPO Clears >2 hours, Solids >8 hours Anesthesia Plan Resuscitation Status: Full Code Anesthesia Technique: MAC Anesthesia Airway Planned: Natural Airway Monitors Used: Standard Monitors Preoperative Comments:: 72 yo female for cataract removal. Intense historian. Sig PMHx: RLS, never smoker, occ EtOH, GERD (poorly controlled, takes sucralfate frequently) - states throws up daily, depression/insomnia, headaches, s/p gastric bypass. States ? TIA, but has lazy eye after. will have MKO.
[2022-05-03 06:50] VITALS: BP 108/71; PULSE 73; RESP 18; TEMP 36.6; O2SAT 99
[2022-05-03] MEDS: Tropicam./Phenyleph. (1/2.5%) 5 ML BTL OS ×3 (06:50→06:58)
[2022-05-03 07:03] VITALS: BMI 23.6
[2022-05-03] MEDS: Midazolam/Ketamine/Ondansetron (3/25/2MG) 1 TAB 1 EACH SL (07:30)
[2022-05-03] MEDS: Lidocaine 2% Jelly 6 ML SYR (07:35)
[2022-05-03] MEDS: Duovisc Viscoelastic System EACH 1 EACH (07:37)
[2022-05-03] MEDS: Balanced Salt Soln.-PLUS 500 ML BAG (07:37)
[2022-05-03] MEDS: Tetracaine 0.5% 4 ML BTL OS (07:39)
[2022-05-03] MEDS: Povidone-Iodine Ophth 30 ML BTL (07:39)
[2022-05-03 07:57] VITALS: BP 112/71; PULSE 63; RESP 16; TEMP 36.3; O2SAT 98
--- NOTE | 2022-05-03 07:58 | W.PM.DSUDISC ---
Discharge Plan Disposition Patient Disposition: HOME Condition: Good Discharge Details Attending Provider: Wally Villalpando Primary Care Provider: Mikel Shook Home Meds and New Rx's Prescriptions: No Action cholecalciferol (vitamin D3) 50 mcg (2,000 unit) capsule 2,000 unit PO DAILY ascorbic acid (vitamin C) 1,000 mg tablet 1 g PO DAILY lidocaine 5 % ointment 1 applic topical DAILY PRN cyclosporine [Restasis] 0.05 % dropperette 1 drp ophthalmic (eye) Q12H Rx Instructions: Both eyes cyclobenzaprine 5 mg tablet 5 mg PO TID lansoprazole [Prevacid] 30 mg capsule,delayed release(DR/EC) 30 mg PO BID PRN black elderberry PO Rx Instructions: As directed on bottle resveratrol 50 mg capsule 50 mg PO DAILY simvastatin 20 MG tablet 20 mg PO DAILY omeprazole [Prilosec] 40 mg Capsule,Delayed Release(Dr/Ec) 40 mg PO BID Discharge Instructions Stand Alone Forms: Post-op Topical Cataract, Lary Ganey (DSU) Discharge Orders Discharge Orders: Discharge Order (Routine); Ordered 05/03/22 Ordered By: Wally Villalpando DS: Diagnosis Discharge Diagnosis (1) Cortical cataract of left eye: Status: Resolved (2) Nuclear sclerotic cataract of left eye: Status: Resolved
--- NOTE | 2022-05-03 07:59 | W.PM.OP ---
Date of service: 05/03/22 Time of Service: 07:59 Operative Note Operative Note DATE OF PROCEDURE: 05/03/22 PRE-OP DIAGNOSIS: Nuclear/cortical cataract, left eye POST-OP DIAGNOSIS: same PROCEDURE: Cataract extraction using phacoemulsification with intraocular lens implant, left eye SURGEON: Wally Villalpando ANESTHESIA TYPE: Local By Surgeon and MAC Refer to Anesthesia Record PATHOLOGY: none sent COMPLICATIONS: None Patient was transported to: same day Patient's condition: stable Implants: Favian and Favian / [employer] Tecnis [id number] Indications: Progressive decreased vision due to cataract, left eye Procedure Description: CATARACT SURGERY OPERATIVE REPORT PREOPERATIVE DIAGNOSIS: 1. Nuclear/cortical cataract, left eye POSTOPERATIVE DIAGNOSIS: Same OPERATION: 1. Cataract extraction using phacoemulsification with posterior chamber intraocular lens implant, left eye. IOL: IOL Economic Development Coordinator/Model: Favian & Favian / SUZIE Tecnis [id number] IOL Power: + 22.5 diopters IOL Serial Number: [id number] Optic Diameter: 6.0 mm Haptic/Overall Diameter: 13.0 mm PHACO INFO: [employer] Vision System with OZil and Active Fluidics Cumulative Dispersed Energy (CDE): 8.79 seconds SURGEON: Wally Villalpando MD, BRIANNA ANESTHESIA: Monitored A [facility] (MAC), with local sub-tenon's anesthetic infiltration COMPLICATIONS: None SPECIMENS: None INDICATIONS FOR PROCEDURE: The patient is a 72-year old lady with history of diminished visual acuity in her left eye secondary to development of nuclear/cortical cataract. The option of cataract surgery was offered to the patient and she felt she was symptomatic enough that she wished to proceed. PROCEDURE: The correct surgical eye was identified and marked as the left eye and the pupil was dilated in the preoperative area using mydriatics and cycloplegics. The dilated pupil size was 7.0 mm. Oral sedation was administered in the form of an Imprimis MKO Melt (midazolam 3mg/ketamine 25mg/ondansetron 2mg). The patient was brought to the operating room where cardiopulmonary monitoring was instituted and surgical time-out was performed, confirming the correct operative eye and IOL power. Topical anesthesia was administered and ophthalmic povidone-iodine 5% was instilled into the conjunctival fornices. Lidocaine gel was applied to the cornea and the mima-ocular area was prepped with Betadine 10% solution and draped in the usual sterile fashion for intraocular surgery, including an aperture drape. A Tegaderm transparent film dressing was cut in half and used to cover the lashes and lid margins. Care was taken to sequester the lashes and lid margins under the Tegaderm dressing. A lid speculum was placed between the lids of the operative eye and the Behzad LuxOR Revalia operating microscope was maneuvered into position. Arnol scissors were then used to make a conjunctival buttonhole approximately 6mm posterior to the limbus in the inferonasal quadrant. Blunt dissection was carried out to expose bare sclera, and a blunt-tipped sub-tenon?s anesthesia cannula was introduced and passed posteriorly along the globe where non-preserved plain lidocaine was injected into posterior sub-Tenon?s space. A sideport knife was used to make a paracentesis port superiorly/superiortemporally. Intraocular phenylephrine/lidocaine was injected int the anterior chamber.. The anterior chamber was filled with viscoelastic. A keratome knife was used to construct a 2-plane near-clear corneal tunnel extending 2.0mm into clear cornea temporally. A flap was raised on the anterior capsule and capsulorhexis forceps were used to complete a continuous curvilinear capsulorhexis of 5.0 mm. Balanced salt solution was then used to perform cortical cleaving hydrodissection and nuclear hydrodelineation until the lens could be freely rotated within the capsular bag. The lens nucleus was then disassembled and removed within the capsular bag and iris plane using phacoemulsification. Residual cortical material was removed using the 45-degree angled silicone I/A tip with 0.3mm port. The posterior capsule was carefully polished to remove as much residual lens epithelial cells as safely possible. The capsular bag was then inflated and the anterior chamber deepened with viscoelastic. The lens implant described above was inserted into the capsular bag using the SUZIE [employer] [place] Injector. A Kuglen hook was used to dial the IOL into position. Residual viscoelastic was then removed first from posterior to the IOL, then from the anterior chamber using the I/A handpiece. The lens implant was noted to center nicely within the capsular bag. The incisions were stromally hydrated, and the anterior chamber was reformed using BSS. Then 0.5cc of moxifloxacin 1.0mg/ml were injected into the capsular bag and anterior chamber. The incisions were checked with a Weck spear and found to be secure. Several drops of ophthalmic povidone-iodine 5% were then applied to the eye followed by two drops of Imprimis combination prednisolone/moxifloxacin/nepafenac solution. The drapes were removed and a clear plastic protective eye shield was placed over the eye. The patient was then returned to Same Day Surgery in stable condition.
--- NOTE | 2022-05-03 08:12 | W.ANESPOSTOP ---
Postoperative Evaluation Date, Time and Location Date Performed: 05/03/22 Time Performed: 08:05 Patient Location: Day Surgery Unit Vital Signs Most Recent Imported Vital Signs: Most Recent Vital Signs Temp Pulse Resp BP Pulse Ox 36.3 C L 63 16 112/71 98 05/03/22 07:57 05/03/22 07:57 05/03/22 07:57 05/03/22 07:57 05/03/22 07:57 Pain Score Most Recent Pain Score: Most Recent Pain Score Pain Level 0 05/03/22 07:57 Assessment Mental Status: Awake (Alert & Oriented to Patient Baseline) Airway and Respiratory Function: Patent airway with normal (patient baseline) respiratory exam Cardiovascular Function: Hemodynamically Stable Hydration Status: Adequately Hydrated Nausea & Vomiting: No Nausea or Vomiting Pain: Pt. Denies Any Pain Peripheral Nerve Block: Patient did not receive a nerve block
[2022-05-03 08:23] VITALS: BP 102/58; PULSE 69; RESP 16; TEMP 36.1; O2SAT 100
== END 2022-05-03 08:31 | disposition home or self-care (01) ==
PROVIDERS: PCP Family Medicine; Visit Provider Ophthalmology
PROC: (CPT 66984; principal; 2022-05-03 07:30)
DX: H25.12 Age-related nuclear cataract, left eye (principal)
CPT/HCPCS: 66984; V2632

== ENCOUNTER 2022-05-05 02:21 | Outpatient (CLI) | payer MEDICARE, OTHER, SELFPAY ==
[2022-05-05 10:18] LABS: Calculated LDL 139 mg/dL (<100); Cholesterol 272 mg/dL (<200); HDL Cholesterol 119 mg/dL (40-60); Triglyceride 73 mg/dL (<150)
[2022-05-05 10:31] LABS: Hemoglobin A1C 6.6 % (<5.7)
== END 2022-05-05 02:22 | disposition home or self-care (01) ==
LOC: LBO 02:21
PROVIDERS: PCP Family Medicine; Visit Provider Internal Medicine
DX: E78.5 Hyperlipidemia, unspecified (principal); E11.9 Type 2 diabetes mellitus without complications
CPT/HCPCS: 36415; 80061; 83036

== ENCOUNTER 2022-05-17 06:29 | Day surgery (SDC) | payer MEDICARE, OTHER, SELFPAY ==
--- NOTE | 2022-05-17 06:46 | W.ANESPRE ---
General Info Date of Service Date Performed: 05/17/22 Height: 5 ft 4 in Weight: 64.3 kg Body Mass Index (BMI): 24.3 Surgical Procedure: Operation Date: 05/17/22 07:40 Proposed Procedure Side Surgeon p Cataract Extraction with IOL Implant Right Wally Villalpando MD Meds Allergies and Home Medications Allergies Allergy/AdvReac Type Severity Reaction Status Date / Time Penicillins Allergy Severe Anaphylaxsi Verified 05/17/22 06:39 s venom-honey bee Allergy Severe Anaphylaxis Verified 05/17/22 06:39 [bee venom (honey bee)] latex Allergy Intermediate Skin Rash Verified 05/17/22 06:39 cigarette smoke Allergy Unknown running Verified 05/17/22 06:39 eyes and coughing zolpidem [From Ambien] AdvReac Severe makes her Verified 05/17/22 06:39 head crazy Home Medication Medication Instructions Recorded simvastatin 20 mg tablet 20 mg PO DAILY 11/11/14 ascorbic acid (vitamin C) 1,000 mg 1 g PO DAILY 03/23/21 tablet cholecalciferol (vitamin D3) 50 2,000 unit PO DAILY 03/23/21 mcg (2,000 unit) capsule cyclobenzaprine 5 mg tablet 5 mg PO TID 05/05/21 cyclosporine 0.05 % eye drops in a 1 drp ophthalmic (eye) Q12H 05/05/21 dropperette (Restasis) lidocaine 5 % topical ointment 1 applic topical DAILY PRN 05/05/21 resveratrol 50 mg capsule 50 mg PO DAILY 05/11/21 black elderberry PO 05/12/21 lansoprazole 30 mg capsule,delayed 30 mg PO BID PRN 05/12/21 release (Prevacid) omeprazole 40 mg capsule,delayed 40 mg PO BID 05/03/22 release prednisolone acetate 1 % eye 1 drp ophthalmic (eye) BID 05/17/22 drops,suspension PFSH Active Problems Active Problems: Problem Status Onset Code Posterior subcapsular age-related cataract, right eye H25.041 Cortical cataract of right eye H26.9 Nuclear sclerotic cataract of right eye H25.11 Nuclear sclerotic cataract of left eye H25.12 Cortical cataract of left eye H26.9 Neoplasm of unspecified behavior of bone, soft tissue, and skin D49.2 Intractable episodic tension-type headache G44.211 Anatomical narrow angle borderline glaucoma Complication of breast implant T85.9XXA Atrophic vaginitis N95.2 Binge eating R63.2 Depression with anxiety F41.8 Herniated intervertebral disc of lumbar spine M51.26 Herpes B00.9 History of reconstruction of both breasts Z98.890 Hyperlipidemia E78.5 Insomnia G47.00 Iron deficiency anemia D50.9 Localized adiposity of thigh E65 Memory loss R41.3 Nocturia R35.1 Patellofemoral disorder of left knee M22.2X2 Patellofemoral disorder of right knee M22.2X1 RLS (restless legs syndrome) G25.81 Rotator cuff tear arthropathy M75.100, M12.819 Sciatica M54.30 Vaginal bleeding N93.9 Vitamin D deficiency E55.9 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 Type 2 diabetes mellitus without complication, without long-term current use of insulin E11.9 Bilateral foot pain M79.671, M79.672 PTSD (post-traumatic stress disorder) F43.10 Gastroesophageal reflux disease with esophagitis without hemorrhage K21.00 Palpitation R00.2 Nasal pain J34.89 Skin lesion of left ear H61.92 Medical History Medical History History of pituitary adenoma Transnasal pituitary adenoma excision (patient unsure of whether the adenoma was productive) Surgical History Surgical History H/O bilateral mastectomy H/O nasal septoplasty H/O rhinoplasty History of tonsillectomy and adenoidectomy Hx of gastric bypass Tobacco Smoking/Tobacco Use Status: Never Alcohol Alcohol Intake: current Alcohol intake frequency: holidays/special occasions only Substance Use Substance use: Never Substance use type: does not use Vital Signs and Lab Results Vital Signs Most Recent Vital Signs in EMR: Temp Pulse Resp BP Pulse Ox 36.5 C 88 16 123/71 99 05/17/22 06:55 05/17/22 06:55 05/17/22 06:55 05/17/22 06:55 05/17/22 06:55 Lab Results Blood Type / Crossmatch: No Data to Display Complete Blood Count: No Data to Display Complete Metabolic Panel: Hemoglobin A1c 6.6 % (<5.7) H 05/05/22 09:43 Liver Function Panel: No Data to Display Coagulation Panel: No Data to Display Cardiac Panel: No Data to Display Arterial Blood Gas: No Data to Display Venous Blood Gas: No Data to Display Pancreas Panel: No Data to Display Thyroid Panel: No Data to Display Infectious Disease: No Data to Display Blood Cultures: No Data to Display Toxicology Panel: No Data to Display Imaging and Studies Imaging and Studies Study information below may be from another EMR and interpreted by another provider. Please see original notes in EMR for more complete details. EKG Summary: 02/2021: sinus. PAC, nonspecific intraventricular conduction delay. Anesthesia Assessment and Plan Anesthesia History Personal History: PONV Family History: No Family History of Anesthesia Complications Exercise Tolerance Exercise Tolerance: Metabolic Equivalents>4 Cardiac & Pulmonary Exam Cardiac Exam: Normal S1/S2 Heart Sounds Pulmonary Exam: Clear Bilateral Breath Sounds Implantable Cardiac Device Does patient have a Pacemaker or an ICD?: No Airway Exam Known Difficult Airway: No Mallampati Class: 1 Mouth Opening: Normal (> 3cm) Thyromental Distance: Greater than 3 cm Neck Range of Motion: Full ROM Neck Circumference: Normal Teeth Condition: Normal Dentition ASA Classification ASA Score: ASA 2 Emergency Case?: No NPO Status NPO Status: NPO Clears >2 hours, Solids >8 hours Anesthesia Plan Resuscitation Status: Full Code Anesthesia Technique: MAC Anesthesia Airway Planned: Natural Airway Monitors Used: Standard Monitors
[2022-05-17 06:55] VITALS: BP 123/71; PULSE 88; RESP 16; TEMP 36.5; O2SAT 99
[2022-05-17] MEDS: Tropicam./Phenyleph. (1/2.5%) 5 ML BTL ×3 (07:03→07:17)
[2022-05-17 07:19] VITALS: BMI 24.3
[2022-05-17] MEDS: Povidone-Iodine Ophth 30 ML BTL (07:41)
[2022-05-17] MEDS: Balanced Salt Soln.-PLUS 500 ML BAG (07:41)
[2022-05-17] MEDS: Duovisc Viscoelastic System EACH 1 EACH (07:42)
[2022-05-17] MEDS: Lidocaine 2% Jelly 6 ML SYR (07:42)
[2022-05-17] MEDS: Tetracaine 0.5% 4 ML BTL (07:43)
[2022-05-17 07:55] VITALS: BP 109/64; PULSE 64; RESP 16; TEMP 36.2; O2SAT 99
--- NOTE | 2022-05-17 07:58 | W.PM.DSUDISC ---
Date of service: 05/17/22 Time of Service: 07:58 Discharge Plan Disposition Patient Disposition: HOME Condition: Good Discharge Details Attending Provider: Wally Villalpando Primary Care Provider: Mikel Shook [place] Meds and New Rx's Prescriptions: No Action cholecalciferol (vitamin D3) 50 mcg (2,000 unit) capsule 2,000 unit PO DAILY ascorbic acid (vitamin C) 1,000 mg tablet 1 g PO DAILY lidocaine 5 % ointment 1 applic topical DAILY PRN cyclosporine [Restasis] 0.05 % dropperette 1 drp ophthalmic (eye) Q12H Rx Instructions: Both eyes cyclobenzaprine 5 mg tablet 5 mg PO TID lansoprazole [Prevacid] 30 mg capsule,delayed release(DR/EC) 30 mg PO BID PRN black elderberry PO Rx Instructions: As directed on bottle resveratrol 50 mg capsule 50 mg PO DAILY simvastatin 20 MG tablet 20 mg PO DAILY prednisolone acetate 1 % drops,suspension 1 drp ophthalmic (eye) BID omeprazole [Prilosec] 40 mg Capsule,Delayed Release(Dr/Ec) 40 mg PO BID Discharge Instructions Stand Alone Forms: Post-op Topical Cataract, Lary Shen (DSU) Discharge Orders Discharge Orders: Discharge Order (Routine); Ordered 05/17/22 Ordered By: Wally Villalpando DS: Diagnosis Discharge Diagnosis (1) Posterior subcapsular age-related cataract, right eye: Status: Resolved (2) Cortical cataract of right eye: Status: Resolved (3) Nuclear sclerotic cataract of right eye: Status: Resolved
--- NOTE | 2022-05-17 07:59 | W.PM.OP ---
Date of service: 05/17/22 Time of Service: 07:59 Operative Note Operative Note DATE OF PROCEDURE: 05/17/22 PRE-OP DIAGNOSIS: Nuclear/cortical/posterior subcapsular cataract, right eye POST-OP DIAGNOSIS: same PROCEDURE: Cataract extraction using phacoemulsification with intraocular lens implant, right eye SURGEON: Wally Villalpando ANESTHESIA TYPE: Local By Surgeon and MAC Refer to Anesthesia Record ESTIMATED BLOOD LOSS: 0 PATHOLOGY: none sent COMPLICATIONS: None Patient was transported to: same day Patient's condition: stable Implants: Favian & Favian/SUZIE Tecnis [id number] Indications: Progressive visual loss due to cataract, right eye Procedure Description: CATARACT SURGERY OPERATIVE REPORT PREOPERATIVE DIAGNOSIS: 1. Nuclear/cortical/posterior subcapsular cataract, right eye POSTOPERATIVE DIAGNOSIS: Same OPERATION: 1. Cataract extraction using phacoemulsification with posterior chamber intraocular lens implant, right eye. IOL: IOL Boom Truck Driver/Model: Favian & Favian / SUZIE Tecnis [id number] IOL Power: + 22.0 diopters IOL Serial Number: [id number] Optic Diameter: 6.0mm Haptic/Overall Diameter: 13.0mm PHACO INFO: Behzad [employer] Vision System with OZil and Active Fluidics Cumulative Dispersed Energy (CDE): 11.18 seconds SURGEON: Wally Villalpando MD, BRIANNA ANESTHESIA: Monitored Anesthesia Care (MAC), with local sub-tenon's anesthetic infiltration COMPLICATIONS: None SPECIMENS: None INDICATIONS FOR PROCEDURE: The patient is a 72-year-old lady with history of diminished visual acuity in her right eyes secondary to the development of nuclear/cortical/posterior subcapsular cataract in the right eye. She has already undergone cataract surgery in the left eye and is doing well postoperatively. She now presents for cataract surgery in the right eye. PROCEDURE: The correct surgical eye was identified and marked as the right eye and the pupil was dilated in the preoperative area using mydriatics and cycloplegics. The dilated pupil size was 7.0 mm. Oral sedation was administered in the form of an Imprimis MKO Melt (midazolam 3mg/ketamine 25mg/ondansetron 2mg). The patient was brought to the operating room where cardiopulmonary monitoring was instituted and surgical time-out was performed, confirming the correct operative eye and IOL power. Topical anesthesia was administered and ophthalmic povidone-iodine 5% was instilled into the conjunctival fornices. Lidocaine gel was applied to the cornea and the mima-ocular area was prepped with Betadine 10% solution and draped in the usual sterile fashion for intraocular surgery, including an aperture drape. A Tegaderm transparent film dressing was cut in half and used to cover the lashes and lid margins. Care was taken to sequester the lashes and lid margins under the Tegaderm dressing. A lid speculum was placed between the lids of the operative eye and the Behzad LuxOR Revalia operating microscope was maneuvered into position. Arnol scissors were then used to make a conjunctival buttonhole approximately 6mm posterior to the limbus in the inferonasal quadrant. Blunt dissection was carried out to expose bare sclera, and a blunt-tipped sub-tenon?s anesthesia cannula was introduced and passed posteriorly along the globe where non-preserved plain lidocaine was injected into posterior sub-Tenon?s space. A sideport knife was used to make a paracentesis port inferotemporally. Intraocular phenylephrine/lidocaine was injected into the anterior chamber. The anterior chamber was filled with viscoelastic. A keratome knife was used to construct a 2-plane near-clear corneal tunnel extending 2.0mm into clear cornea superiortemporally. A flap was raised on the anterior capsule and capsulorhexis forceps were used to complete a continuous curvilinear capsulorhexis of 5.5 mm. Balanced salt solution was then used to perform cortical cleaving hydrodissection and nuclear hydrodelineation until the lens could be freely rotated within the capsular bag. The lens nucleus was then disassembled and removed within the capsular bag and iris plane using phacoemulsification. Residual cortical material was removed using the I/A handpiece. The posterior capsule was carefully polished to remove as much residual lens epithelial cells as safely possible. The capsular bag was then inflated and the anterior chamber deepened with viscoelastic. The lens implant described above was inserted into the capsular bag using the SUZIE [place] Injector. A Kuglen hook was used to dial the IOL into position. Residual viscoelastic was then removed first from posterior to the IOL, then from the anterior chamber using the I/A handpiece. The lens implant was noted to center nicely within the capsular bag. The incisions were stromally hydrated, and the anterior chamber was reformed using BSS. Then 0.5cc of moxifloxacin 1.0mg/ml were injected into the capsular bag and anterior chamber. The incisions were checked with a Weck spear and found to be secure. Several drops of ophthalmic povidone-iodine 5% were then applied to the eye followed by two drops of Imprimis combination prednisolone/moxifloxacin/nepafenac solution. The drapes were removed and a clear plastic protective eye shield was placed over the eye. The patient was then returned to Same Day Surgery in stable condition.
--- NOTE | 2022-05-17 08:05 | W.ANESPOSTOP ---
Postoperative Evaluation Date, Time and Location Date Performed: 05/17/22 Time Performed: 08:10 Patient Location: Day Surgery Unit Vital Signs Most Recent Imported Vital Signs: Most Recent Vital Signs Temp Pulse Resp BP Pulse Ox 36.5 C 88 16 123/71 99 05/17/22 06:55 05/17/22 06:55 05/17/22 06:55 05/17/22 06:55 05/17/22 06:55 Most Recent Manually Entered Vital Signs: Adult Blood Pressure: 109/64 Heart Rate: 64 Respirations: 16 Oxygen Saturation (%): 99 Temperature (C): 36.2 C Pain Score (0-10 Scale): 0 Pain Score Most Recent Pain Score: Most Recent Pain Score Pain Level 0 05/17/22 06:55 Assessment Mental Status: Awake (Alert & Oriented to Patient Baseline) Airway and Respiratory Function: Patent airway with normal (patient baseline) respiratory exam Cardiovascular Function: Hemodynamically Stable Hydration Status: Adequately Hydrated Nausea & Vomiting: No Nausea or Vomiting Pain: Pt. Denies Any Pain Peripheral Nerve Block: Patient did not receive a nerve block
[2022-05-17 08:18] VITALS: BP 113/62; PULSE 77; RESP 16; TEMP 36.5; O2SAT 99
[2022-05-17 08:20] VITALS: BP 109/64; PULSE 64; RESP 16; TEMPC 36.2; O2SAT 99
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
== END 2022-05-17 09:00 | disposition home or self-care (01) ==
LOC: SUR 06:31
PROVIDERS: PCP Family Medicine; Visit Provider Ophthalmology
PROC: (CPT 66984; principal; 2022-05-17 07:30)
DX: H25.041 Posterior subcapsular polar age-related cataract, right eye (principal)
CPT/HCPCS: 66984; V2632

== ENCOUNTER → 2023-04-12 10:23 | Outpatient (CLI) | payer MEDICARE, OTHER, SELFPAY ==
--- NOTE | 2023-04-12 | DI.RAD_ITS ---
Exam(s) XR CHEST 2V PA LATERAL EXAM: XR CHEST 2V PA LATERAL CLINICAL HISTORY: PRE OP, ASYMPTOMATIC, HX BREAST CA 20 YRS AGO TECHNIQUE: 2D digital imaging was performed of the chest. Two images were obtained. PA and lateral views were obtained. COMPARISON: CR CHEST 2 VIEWS PA,LAT from 01/10/2015 FINDINGS: MEDIASTINUM: Normal. HEART: Normal. PULMONARY VASCULATURE: Normal. LUNGS: Clear. PLEURAL SPACE: No pleural effusion or pneumothorax. BONE:Within normal limits for the patient's age. OTHER FINDINGS:Normal. IMPRESSION: No acute pulmonary findings. DATA REPOSITORY: RADIATION DOSE DELIVERED:
== END ==
PROVIDERS: PCP Family Medicine; Visit Provider Family Medicine
DX: Z01.818 Encounter for other preprocedural examination (principal)
CPT/HCPCS: 71046

== ENCOUNTER 2023-04-12 10:25 | Outpatient (CLI) | payer MEDICARE, OTHER, SELFPAY ==
[2023-04-12 09:15] LABS: Abs Immature Grans 0.01 10^3/uL (0.0-0.06); Absolute Basophil Count 0.04 10^3/uL (0.0-0.2); Absolute Eosinophil Count 0.11 10^3/uL (0.0-0.7); Absolute Lymphocyte Count 1.56 10^3/uL (1.2-3.4); Absolute Monocyte Count 0.34 10^3/uL (0.1-0.8); Absolute Neutrophil Count 2.45 10^3/uL (1.2-6.7); Basophils % 0.9; Eosinophils % 2.4; HCT 43.5 % (36.0-46.0); HGB 13.5 g/dL (11.2-15.7); Immature Grans % 0.2; Lymphocytes % 34.6; MCH 24.5 pg (27.0-33.0); MCV 79 fL (80-95); MPV 9.3 fL (8.0-11.0); Monocytes % 7.5; Neutrophils % 54.4; Platelet Count 339 10^3/uL (130-400); RDW 17.3 % (11.7-14.6); RDW-SD 49.5 fL; WBC 4.51 10^3/uL (4.4-10.8)
[2023-04-12 10:22] LABS: ALT 28 U/L (14-59); AST 21 U/L (15-37); Albumin 3.6 g/dL (3.4-5.0); Alkaline Phosphatase 68 U/L (46-116); Anion Gap 7.6 mmol/L (3-11); BUN 20 mg/dL (7-18); Bilirubin, Total 0.4 mg/dL (0.2-1.0); CO2 29.4 mmol/L (21.0-32.0); CREATININE 0.8 mg/dL (0.55-1.02); Calcium 9.8 mg/dL (8.5-10.1); Chloride 102 mmol/L (98-107); Estimated GFR 77.75 (mL/min/1.73m2); Glucose 116 mg/dL (74-106); Potassium 3.8 mmol/L (3.5-5.1); Sodium 139 mmol/L (136-145); Total Protein 7.5 g/dL (6.4-8.2)
== END 2023-04-12 10:26 | disposition home or self-care (01) ==
LOC: LBO 04-19 10:25
PROVIDERS: PCP Family Medicine; Visit Provider Family Medicine
DX: Z13.6 Encounter for screening for cardiovascular disorders (principal); Z01.818 Encounter for other preprocedural examination; Z01.812 Encounter for preprocedural laboratory examination; E11.9 Type 2 diabetes mellitus without complications
CPT/HCPCS: 36415; 80053; 85025

== ENCOUNTER → 2023-08-12 00:44 | Outpatient (CLI) | payer MEDICARE, OTHER, SELFPAY ==
--- NOTE | 2023-08-12 14:05 | DI.DEXA_ITS ---
Exam(s) XR DEXA BONE DENSITY W/WO BONNIE EXAM: XR DEXA BONE DENSITY W/WO BONNIE CLINICAL HISTORY: OSTEOPENIA OF MULTIPLE SITES M85.89 TECHNIQUE: 13th [employer] Horizon C densitometer analysis of left hip, lumbar spine and left forearm. Lat era survey image of the thoracic and lumbar spine. COMPARISON: 2016 and 2019 FINDINGS: Lateral view of the thoracic and lumbar spine shows no evidence of compression fractures. Bone mineral density measurements of the lumbar spine correspond to a total T-score of -0.4, in the normal range. Not significantly changed from priors. Bone mineral density measurements of the left hip correspond to a total T-score of -2.0.. This repr esents a 2.3 percent decrease from 20 25.7 percent decrease from 2017. The femoral neck T-score is 2.3, in the osteopenic range.. Theleft forearm bone mineral density measurements correspond to a T-score of the distal 3rd of -2.6, in the osteoporotic range. This represents a 3.7 percent decrease from 2020 and a 7.7 percent decre ase from 2017. IMPRESSION: Osteoporosis of the forearm. Osteopenia of the hip. Normal bone density of the spine.
== END ==
PROVIDERS: PCP Family Medicine; Visit Provider Family Medicine
DX: M85.89 Other specified disorders of bone density and structure, multiple sites (principal); Z13.820 Encounter for screening for osteoporosis
CPT/HCPCS: 77080

== ENCOUNTER 2023-08-12 14:26 | Outpatient (CLI) | payer MEDICARE, OTHER, SELFPAY ==
[2023-08-12 14:38] LABS: Abs Immature Grans 0.01 10^3/uL (0.0-0.06); Absolute Basophil Count 0.03 10^3/uL (0.0-0.2); Absolute Lymphocyte Count 1.98 10^3/uL (1.2-3.4); Absolute Monocyte Count 0.32 10^3/uL (0.1-0.8); Absolute Neutrophil Count 1.85 10^3/uL (1.2-6.7); Basophils % 0.7; Eosinophils % 2.3; HCT 37.3 % (36.0-46.0); HGB 11.7 g/dL (11.2-15.7); Immature Grans % 0.2; Lymphocytes % 46.2; MCH 24.6 pg (27.0-33.0); MCHC 31.4 % (32.0-36.0); MCV 78 fL (80-95); MPV 9.6 fL (8.0-11.0); Monocytes % 7.5; Neutrophils % 43.1; Platelet Count 328 10^3/uL (130-400); RBC 4.76 10^6/uL (3.93-5.22); RDW 16.3 % (11.7-14.6); RDW-SD 46.5 fL; WBC 4.29 10^3/uL (4.4-10.8)
[2023-08-12 14:48] LABS: Hemoglobin A1C 6.7 % (<5.7)
[2023-08-12 15:34] LABS: Vitamin D 25 Total 54.7 ng/mL (30-100)
[2023-08-12 15:39] LABS: ALT 39 U/L (14-59); AST 25 U/L (15-37); Albumin 3.5 g/dL (3.4-5.0); Alkaline Phosphatase 65 U/L (46-116); Anion Gap 8.6 mmol/L (3-11); BUN 20 mg/dL (7-18); Bilirubin, Total 0.3 mg/dL (0.2-1.0); CO2 29.4 mmol/L (21.0-32.0); CREATININE 0.8 mg/dL (0.55-1.02); Calcium 9.2 mg/dL (8.5-10.1); Calculated LDL 152 mg/dL (<100); Chloride 101 mmol/L (98-107); Cholesterol 282 mg/dL (<200); Estimated GFR 77.75 (mL/min/1.73m2); Ferritin 11 ng/mL (8-252); Glucose 143 mg/dL (74-106); HDL Cholesterol 118 mg/dL (40-60); Magnesium 2.2 mg/dL (1.8-2.4); Sodium 139 mmol/L (136-145); TSH 1.91 uIU/mL (0.36-3.74); Total Protein 7.3 g/dL (6.4-8.2); Triglyceride 63 mg/dL (<150); Vitamin B12 646 pg/mL (193-986)
[2023-08-12 15:59] LABS: Creatine Kinase 170 U/L (26-192); FREE T4 0.96 ng/dL (0.76-1.46)
[2023-08-12 16:05] LABS: Iron 21 ug/dL (50-170)
[2023-08-12 16:17] LABS: COMMENT (LAB VIEW ONLY) 111.97 mg/dL; Microalb ug/mg Crea 26.6 ug/mg Cr
== END 2023-08-12 14:27 | disposition home or self-care (01) ==
LOC: LBO 14:29
PROVIDERS: PCP Family Medicine; Visit Provider Family Medicine
DX: Z79.899 Other long term (current) drug therapy (principal); E11.65 Type 2 diabetes mellitus with hyperglycemia
CPT/HCPCS: 36415; 80053; 80061; 82306; 82550; 82043; 82565; 82570; 82607; 82728; 83036; 83540; 83735; 84156; 84439; 84443; 85025

== ENCOUNTER 2023-11-24 05:12 | Outpatient (CLI) | payer MEDICARE, OTHER, SELFPAY ==
[2023-11-24 12:26] LABS: Absolute Basophil Count 0.02 10^3/uL (0.0-0.2); Absolute Eosinophil Count 0.13 10^3/uL (0.0-0.7); Absolute Lymphocyte Count 1.58 10^3/uL (1.2-3.4); Absolute Monocyte Count 0.32 10^3/uL (0.1-0.8); Absolute Neutrophil Count 1.45 10^3/uL (1.2-6.7); Basophils % 0.6 %; Eosinophils % 3.7 %; HCT 37.7 % (36.0-46.0); HGB 11.4 g/dL (11.2-15.7); Lymphocytes % 45.1 %; MCH 23.9 pg (27.0-33.0); MCHC 30.2 % (32.0-36.0); MCV 79 fL (80-95); MPV 9.9 fL (8.0-11.0); Monocytes % 9.1 %; Neutrophils % 41.5 %; Platelet Count 338 10^3/uL (130-400); RBC 4.76 10^6/uL (3.93-5.22); RDW 17.6 % (11.7-14.6); RDW-SD 50.9 fL
[2023-11-24 12:41] LABS: Iron 51 ug/dL (50-170)
[2023-11-24 12:59] LABS: ALT 30 U/L (14-59); AST 20 U/L (15-37); Albumin 3.4 g/dL (3.4-5.0); Alkaline Phosphatase 70 U/L (46-116); Anion Gap 9.1 mmol/L (3-11); BUN 17 mg/dL (7-18); Bilirubin, Total 0.5 mg/dL (0.2-1.0); CO2 29.9 mmol/L (21.0-32.0); CREATININE 0.8 mg/dL (0.55-1.02); Calculated LDL 149 mg/dL (<100); Chloride 104 mmol/L (98-107); Cholesterol 279 mg/dL (<200); Estimated GFR 77.75 (mL/min/1.73m2); Ferritin 11 ng/mL (8-252); Glucose 156 mg/dL (74-106); HDL Cholesterol 119 mg/dL (40-60); Potassium 3.9 mmol/L (3.5-5.1); Sodium 143 mmol/L (136-145); Total Protein 6.8 g/dL (6.4-8.2); Triglyceride 59 mg/dL (<150)
== END 2023-11-24 05:13 | disposition home or self-care (01) ==
LOC: LOS 05:12
PROVIDERS: PCP Family Medicine; Visit Provider Family Medicine
DX: E11.9 Type 2 diabetes mellitus without complications (principal); G25.81 Restless legs syndrome
CPT/HCPCS: 36415; 80053; 80061; 82728; 83540; 85025